=== PATIENT | male | born 1975 | race Caucasian/White ===

== ENCOUNTER 2017-05-13 15:01 | Observation (INO) | payer SELFPAY ==
--- NOTE | 2017-05-13 15:11 | PDOC ---
Rapid Medical Evaluation Time Seen by Provider: 05/13/17 15:08 Medical Evaluation: Allergies Allergy/AdvReac Type Severity Reaction Status Date / Time No Known Allergies Allergy Verified 04/30/16 21:28 05/13/17 15:08 I have performed a brief in-person evaluation of this patient. The patient presents with a chief complaint of: Lower abd pain with diarrhea w/ subjective fever and chills x 2 yesterday Pertinent physical exam findings:T 99.7 and tachy to 115 w/ lower abd ttp I have ordered the following:cbc/chem/lipase/ua/bld cx The patient will proceed to the ED for further evaluation.
[2017-05-13 15:36] LABS: BASO % 0.3 % (0-2.0); EOS % 0.3 % (0-4.5); MCH 31.2 pg (25.7-33.7); MCHC 34.3 g/dl (32.0-35.9); MEAN CELL VOLUME 90.9 fl (80-96); MEAN PLT VOLUME 9.3 fl (7.5-11.1); PLATELET COUNT 136 K/MM3 (134-434); RDW 13.3 % (11.9-15.9); WHITE BLOOD COUNT 11.8 K/mm3 (4.0-10.0)
[2017-05-13 15:37] LABS: URINE APPEARANCE CLOUDY; URINE BILIRUBIN NEGATIVE (NEGATIVE); URINE BLOOD 1+ (NEGATIVE); URINE COLOR YELLOW; URINE GLUCOSE (UA) NEGATIVE (NEGATIVE); URINE KETONE 1+ (NEGATIVE); URINE LEUK ESTERASE NEGATIVE (NEGATIVE); URINE NITRITE NEGATIVE (NEGATIVE); URINE PROTEIN NEGATIVE (NEGATIVE); URINE UROBILINOGEN NEGATIVE mg/dL (0.2-1.0)
[2017-05-13 15:46] LABS: URINE MUCUS RARE; URINE RBC 2 /hpf (0-3); URINE WBC 1 /hpf (3-5)
[2017-05-13 15:57] LABS: ANION GAP 11 (8-16); BILIRUBIN,TOTAL 0.7 mg/dL (0.2-1.0); CO2 26 mmol/L (21-32); CREATININE 0.9 mg/dL (0.7-1.3); GLUCOSE,RANDOM 100 mg/dL (74-106); SGOT/AST 21 U/L (15-37); SGPT/ALT 39 U/L (12-78); TOT PROT 8.3 g/dl (6.4-8.2)
[2017-05-13 15:58] LABS: ALK PHOS 97 U/L (45-117)
[2017-05-13 18:22] LABS: URINE LEUK ESTERASE Negative (NEGATIVE)
[2017-05-13] MEDS ORDERED: SODIUM CHLORIDE 0.9% 500 ML INFUS.BAG IV ONE (18:39)
[2017-05-13] MEDS ORDERED: ACETAMINOPHEN 1000 MG/100 ML VIAL (NON FORMULARY) IVPB ONE (18:46)
--- NOTE | 2017-05-13 18:48 | PDOC ---
History of Present Illness - General Chief Complaint: Back Pain Stated Complaint: BACK PAIN Time Seen by Provider: 05/13/17 15:08 - History of Present Illness Initial Comments: 05/13/17 20:59 The patient is a 42 year old male, with a significant past medical history of disc herniation, who presents to the emergency department complaining of abdominal pain since yesterday afternoon at approximately 14:00. Patient reports sudden onset of diffuse lower abdominal pain after eating a [employer] cheeseburger yesterday afternoon. Patient reports his pain has been intermittent and radiates into his lower back. Patient reports his pain is worse in his LLQ than his RLQ. Patient reports his pain is exacerbated with movement or when lying flat, and alleviated with walking. Patient describes his pain as fullness with ocassional electrical shocks, but reports associated diarrhea(x5 episodes, nonbloody), colic, subjective fever, chills, but denies any nausea, vomiting, or constipation. He denies any flank pain, dysuria, hematuria, frequency, or urgency. Denies any cough, lightheadedness, dizziness, headache or changes in vision. He denies any chest pain, shortness of breath, diaphoresis, or palpitations. He denies any recent trauma, heavy lifting, travel , or sick contacts. Allergies: NKDA Past Surgical History: None reported Social History: Occasional ETOH use. Non smoker. No recreational drug use. Past History - Past Medical History Allergies/Adverse Reactions: Allergies Allergy/AdvReac Type Severity Reaction Status Date / Time No Known Allergies Allergy Verified 05/13/17 15:11 Home Medications: Ambulatory Orders NK [No Known Home Medication] 07/16/15 COPD: No Other medical history: MOTHER DENIES MEDICAL HX - Immunization History Immunization Up to Date: Yes - Suicide/Smoking/Psychosocial Hx Smoking Status: No Smoking History: Never smoked Have you smoked in the past 12 months: No Number of Cigarettes Smoked Daily: 0 Hx Alcohol Use: Yes (OCCASIONALLY) Drug/Substance Use Hx: No Substance Use Type: None Review of Systems - Review of Systems Comments:: 05/13/17 20:59 GENERAL/CONSTITUTIONAL: Yes fever, chills, tremors. No weakness. HEAD, EYES, EARS, NOSE AND THROAT: No change in vision. No ear pain or discharge. No sore throat. GASTROINTESTINAL: Yes lower abdominal pain radiating to back, diarrhea, colic. No nausea, vomiting, or constipation. GENITOURINARY: No dysuria, frequency, or change in urination. CARDIOVASCULAR: No chest pain or shortness of breath. RESPIRATORY: No cough, wheezing, or hemoptysis. MUSCULOSKELETAL: Yes lower back pain. No joint or muscle swelling or pain. No neck pain. SKIN: No rash NEUROLOGIC: Yes headache. No vertigo, loss of consciousness, or change in strength/sensation. ENDOCRINE: No increased thirst. No abnormal weight change. HEMATOLOGIC/LYMPHATIC: No anemia, easy bleeding, or history of blood clots. ALLERGIC/IMMUNOLOGIC: No hives or skin allergy. *Physical Exam - Vital Signs Last Vital Signs Temp Pulse Resp BP Pulse Ox 99.7 F H 115 H 18 142/87 97 05/13/17 15:09 05/13/17 15:09 05/13/17 15:09 05/13/17 15:09 05/13/17 15:09 - Physical Exam Comments: 05/13/17 20:59 GENERAL: Awake, alert, and fully oriented, appears uncomfortable HEAD: No signs of trauma EYES: PERRLA, EOMI, sclera anicteric, conjunctiva clear ENT: Auricles normal inspection, hearing grossly normal, nares patent, oropharynx clear without exudates. Moist mucosa NECK: Normal ROM, supple, no lymphadenopathy, JVD, or masses LUNGS: Breath sounds equal, clear to auscultation bilaterally. No wheezes, and no crackles HEART: Regular rate and rhythm, normal S1 and S2, no murmurs, rubs or gallops ABDOMEN: Diffuse tenderness to palpation to the lower quadrants (left worse than right), but no guarding or rebound. Soft, normoactive bowel sounds. No masses EXTREMITIES: Normal range of motion, no edema. No clubbing or cyanosis. No cords, erythema, or tenderness BACK: No midline spinal tenderness in cervical/thoracic/lumbar region NEUROLOGICAL: Normal speech, cranial nerves intact, negative pronator drift, 5/ 5 strength in all 4 extremities, normal sensation to light touch in all 4 extremities, normal cerebellar exam, normal gait, normal reflexes and tone SKIN: Warm, Dry, normal turgor, no rashes or lesions noted. ED Treatment Course - LABORATORY CBC & Chemistry Diagram: 05/13/17 15:20 05/13/17 15:20 - ADDITIONAL ORDERS Additional order review: Laboratory Results 05/13/17 05/13/17 15:20 15:20 Sodium 137 Potassium 3.9 Chloride 100 Carbon Dioxide 26 Anion Gap 11 BUN 14 D Creatinine 0.9 D Creat Clearance w eGFR > 60 Random Glucose 100 Calcium 9.0 Total Bilirubin 0.7 D AST 21 ALT 39 D Alkaline Phosphatase 97 Total Protein 8.3 H Albumin 4.0 Lipase 96 Urine Color Yellow Urine Appearance Cloudy Urine pH 5.0 Ur Specific [place] 1.025 Urine Protein Negative Urine Glucose (UA) Negative Urine Ketones 1+ H Urine Blood 1+ H Urine Nitrite Negative Urine Bilirubin Negative Urine Urobilinogen Negative Ur Leukocyte Esterase Negative Urine WBC (Auto) 1 Urine RBC (Auto) 2 Urine Mucus Rare 05/13/17 15:20 RBC 4.92 MCV 90.9 MCHC 34.3 RDW 13.3 MPV 9.3 Neutrophils % 85.0 H D Lymphocytes % 8.0 D Monocytes % 6.4 Eosinophils % 0.3 D Basophils % 0.3 - RADIOLOGY Radiology Studies Ordered: Category Date Time Status ABDOMEN & PELVIS CT WITH CONTR [CT] Stat CT Scan 05/13/17 18:38 Ordered Medical Decision Making - Medical Decision Making 05/13/17 18:48 42-year-old male with a history of disc herniation presents with lower abdominal pain associated with nonbloody diarrhea. Vitals remarkable for tachycardia to 115. Exam with L>R lower quadrant tenderness to palpation. Differential includes but is not limited to diverticulitis versus colitis versus appendicitis. Plan: -labs -UA -CT -IV tylenol (for pain control, and for slightly elevated temp 99.7) -dispo *DC/Admit/Observation/Transfer Diagnosis at time of Disposition: Abdominal pain - Referrals - Patient Instructions - Post Discharge Activity - Attestations Physician Attestion: 05/13/17 21:00 I, Dr. Valencia Vaz MD, attest that this document has been prepared under my direction and personally reviewed by me in its entirety. I further attest, that it accurately reflects all work, treatment, procedures and medical decision -making performed by me.
[2017-05-13] MEDS ORDERED: ACETAMINOPHEN INJECTION 100 ML IVPB ONE (20:30)
[2017-05-13] MEDS ORDERED: LEVOFLOXACIN 250 MG TABLET (FP) PO ONE (23:14)
[2017-05-13] MEDS ORDERED: metroNIDAZOLE 250 MG TABLET PO ONE (23:14)
--- NOTE | 2017-05-13 23:20 | PDOC ---
*Physical Exam - Vital Signs Last Vital Signs Temp Pulse Resp BP Pulse Ox 99.7 F H 115 H 18 142/87 97 05/13/17 15:09 05/13/17 15:09 05/13/17 15:09 05/13/17 15:09 05/13/17 15:09 ED Treatment Course - LABORATORY CBC & Chemistry Diagram: 05/13/17 15:20 05/13/17 15:20 - ADDITIONAL ORDERS Additional order review: Laboratory Results 05/13/17 05/13/17 15:20 15:20 Sodium 137 Potassium 3.9 Chloride 100 Carbon Dioxide 26 Anion Gap 11 BUN 14 D Creatinine 0.9 D Creat Clearance w eGFR > 60 Random Glucose 100 Calcium 9.0 Total Bilirubin 0.7 D AST 21 ALT 39 D Alkaline Phosphatase 97 Total Protein 8.3 H Albumin 4.0 Lipase 96 Urine Color Yellow Urine Appearance Cloudy Urine pH 5.0 Ur Specific [place] 1.025 Urine Protein Negative Urine Glucose (UA) Negative Urine Ketones 1+ H Urine Blood 1+ H Urine Nitrite Negative Urine Bilirubin Negative Urine Urobilinogen Negative Ur Leukocyte Esterase Negative Urine WBC (Auto) 1 Urine RBC (Auto) 2 Urine Mucus Rare 05/13/17 15:20 RBC 4.92 MCV 90.9 MCHC 34.3 RDW 13.3 MPV 9.3 Neutrophils % 85.0 H D Lymphocytes % 8.0 D Monocytes % 6.4 Eosinophils % 0.3 D Basophils % 0.3 - Medications Given in the ED: ED Medications Discontinued Medications Generic Name Dose Route Start Last Admin Trade Name Brenden PRN Reason Stop Dose Admin Acetaminophen 1,000 mg 05/13/17 18:46 05/13/17 20:40 Ofirmev Injection - IVPB 05/13/17 18:47 1,000 mg ONCE ONE Administration Sodium Chloride 1,000 ml 05/13/17 18:39 05/13/17 20:39 Normal Saline - IV 05/13/17 18:40 1,000 ml ONCE ONE Administration Medical Decision Making - Medical Decision Making 05/13/17 23:16 Sign out taken from Dr. Vaz at 7PM. 42 M with LLQ pain. CTAP showing likely colitis. Pt reassessed - reports that his pain is tolerable, is able to tolerate PO without any issues. Levaquin and flagyl sent to pt's pharmacy. Will recheck vitals. DIscharge pending normalization of HR. 12/08/17 23:47 HR rechecked. Pt persistently tachycardic >100. Will admit to obs at this time for continued IV hydration and abx. *DC/Admit/Observation/Transfer Diagnosis at time of Disposition: Abdominal pain, Colitis - Prescriptions Prescriptions: Levofloxacin [Levaquin] 750 mg PO DAILY #7 tab Metronidazole [Flagyl -] 250 mg PO TID #21 tablet - Referrals Referrals: Rod Bates MD [Staff Physician] - - Patient Instructions Printed Discharge Instructions: DI for Colitis Additional Instructions: Take the antibiotics as prescribed to treat your colitis. If you experience worsening pain, fevers, vomiting, or any other concerning symptoms, return to the ER immediately. Otherwise follow up with a lumber carrier operator within 1-2 weeks for a re-evaluation. Call the number provided to make an appointment. Print Language: ICELANDIC - Post Discharge Activity - Attestations Physician Attestion: 05/13/17 23:22 I, Dr. Fransisco Hills MD, attest that this document has been prepared under my direction and personally reviewed by me in its entirety. I further attest, that it accurately reflects all work, treatment, procedures and medical decision -making performed by me.
[2017-05-13] MEDS ORDERED: metroNIDAZOLE 250 MG TABLET ONE (23:35)
[2017-05-13] MEDS ORDERED: LEVOFLOXACIN 500 MG TABLET (FP) ONE (23:35)
[2017-05-13] MEDS ORDERED: LEVOFLOXACIN 250 MG TABLET (FP) ONE (23:35)
[2017-05-13] MEDS ORDERED: SODIUM CHLORIDE 1,000 ML IV STA (23:44)
[2017-05-14] MEDS ORDERED: morphine SULFATE 4 MG/ML VIAL IVPUSH PRN (00:46)
[2017-05-14] MEDS ORDERED: METOCLOPRAMIDE HCL INJECTION 10 MG/2 ML VIAL IVPUSH PRN (00:46)
[2017-05-14] MEDS ORDERED: ACETAMINOPHEN 325 MG TABLET (FP) PO PRN (00:46)
--- NOTE | 2017-05-14 00:58 | HP ---
Admitting History and Physical - Primary Care Physician PCP: - Admission Chief Complaint: Abdominal pain and diarrhea History of Present Illness: 42 y/o M presented to ED c/o LUQ abdominal pain and 5-6 episodes of nonbloody diarrhea since . Patient states he ate a burger on and then had symptoms start. Denies fever, chills, nausea or vomiting. No prior use of antibiotics or travel or recent sick contacts. Patient came to the ER and was given IVF and cipro and flagyl. CT abdomen report colitis. History Source: Patient, Medical Record Limitations to Obtaining History: No Limitations - Past Medical History Musculoskeletal: Yes: Chronic low back pain (herniated disk) - Past Surgical History Past Surgical History: Yes: None - Smoking History Smoking history: Never smoked Have you smoked in the past 12 months: No Aproximately how many cigarettes per day: 0 - Alcohol/Substance Use Hx Alcohol Use: Yes (OCCASIONALLY) - Social History History of Recent Travel: No Home Medications - Allergies Allergies/Adverse Reactions: Allergies Allergy/AdvReac Type Severity Reaction Status Date / Time No Known Allergies Allergy Verified 05/13/17 15:11 - Home Medications Home Medications: Ambulatory Orders Levofloxacin [Levaquin] 750 mg PO DAILY #7 tab 05/13/17 Metronidazole [Flagyl -] 250 mg PO TID #21 tablet 05/13/17 Family Disease History - Family Disease History Family History: Unremarkable Review of Systems - Review of Systems Constitutional: reports: No Symptoms Eyes: reports: No Symptoms HENT: reports: No Symptoms Neck: reports: No Symptoms Cardiovascular: reports: No Symptoms Respiratory: reports: No Symptoms Gastrointestinal: reports: Abdominal Pain, Diarrhea. denies: Constipation, Dysphagia, Melena, Vomiting Blood Genitourinary: reports: No Symptoms Musculoskeletal: reports: Back Pain (History of back pain) Pain Intensity: 9 (cramping, sharp, intermittent) Physical Examination Vital Signs: Vital Signs Temperature 99.1 F 05/13/17 23:41 Pulse Rate 103 H 05/13/17 23:41 Respiratory Rate 20 05/13/17 23:41 Blood Pressure 134/75 05/13/17 23:41 O2 Sat by Pulse Oximetry (%) 100 05/13/17 23:41 Constitutional: Yes: Well Nourished, Severe Distress Eyes: Yes: Conjunctiva Clear, EOM Intact, PERRL HENT: Yes: Atraumatic, Normocephalic Neck: Yes: Supple, Trachea Midline Cardiovascular: Yes: Regular Rate and Rhythm, S1, S2. No: Gallop, Murmur, Rub Respiratory: Yes: Regular, CTA Bilaterally. No: SOB Gastrointestinal: Yes: Normal Bowel Sounds, Soft. No: Ascites, Hernia, Pulsatile Mass, Vomiting ...Rectal Exam: Yes: Deferred Renal/: Yes: WNL. No: CVA Tenderness - Left, CVA Tenderness - Right, Hematuria, Incontinence Musculoskeletal: Yes: WNL Extremities: Yes: WNL Edema: No Peripheral Pulses WNL: Yes Integumentary: Yes: WNL. No: Erythema, Jaundice, Rash Neurological: Yes: Alert, Oriented, Cran Nerves II-XII Intact ...Motor Strength: WNL Psychiatric: Yes: WNL Labs: CBC, BMP 05/13/17 15:20 05/13/17 15:20 Imaging - Results Cat Scan: Report Reviewed (Mild diffuse colonic wall thickening) Problem List - Problems (1) Colitis Assessment/Plan: Admit for observation IVF NS @200cc/h Clear liquids as tolerated Morphine 2 mg q6h prn for severe, tylenol 650mg po q6h prn Pepcid 20 mg BID Stool studies if patient has further bowel movements DVT prophylaxis SCD Repeat CBC and BMP in AM Code(s): K52.9 - NONINFECTIVE GASTROENTERITIS AND COLITIS, UNSPECIFIED (2) H/O low back pain Code(s): Z87.39 - PERSONAL HISTORY OF DISEASES OF THE MS SYS AND CONN TISS
[2017-05-14] MEDS ORDERED: ACETAMINOPHEN 325 MG TABLET (FP) ONE (01:05)
[2017-05-14] MEDS: SODIUM CHLORIDE 1,000 ML IV SCH ×4 (03:41→17:28)
[2017-05-14 04:40] VITALS: BMI 28.3
[2017-05-14 08:13] LABS: MCH 31.7 pg (25.7-33.7); MCHC 34.7 g/dl (32.0-35.9); MEAN CELL VOLUME 91.5 fl (80-96); MEAN PLT VOLUME 9.5 fl (7.5-11.1); PLATELET COUNT 119 K/MM3 (134-434); RDW 13.2 % (11.9-15.9); WHITE BLOOD COUNT 8.1 K/mm3 (4.0-10.0)
[2017-05-14 08:48] LABS: ANION GAP 9 (8-16); BILIRUBIN,TOTAL 0.7 mg/dL (0.2-1.0); CALCIUM 7.5 mg/dL (8.5-10.1); CO2 25 mmol/L (21-32); CREATININE 0.8 mg/dL (0.7-1.3); GLUCOSE,RANDOM 91 mg/dL (74-106); SGOT/AST 18 U/L (15-37); SGPT/ALT 31 U/L (12-78)
[2017-05-14 08:49] LABS: ALK PHOS 81 U/L (45-117)
[2017-05-14] MEDS ORDERED: PT OWN MED DRAWER 7, Y5N ONE (09:02)
[2017-05-14] MEDS ORDERED: FAMOTIDINE IV 20 MG/12 ML VIAL IVPUSH SCH ×2 (10:00)
--- NOTE | 2017-05-14 16:28 | PN ---
Physical Exam: SUBJECTIVE: Patient seen and examined OBJECTIVE: Vital Signs Period Temp Pulse Resp BP Sys/White Pulse Ox Last 24 Hr 97.9 F-99.9 F 87-107 16-20 109-136/56-78 96-100 GENERAL: The patient is awake, alert, and fully oriented, in no acute distress. HEAD: Normal with no signs of trauma. EYES: PERRL, extraocular movements intact, sclera anicteric, conjunctiva clear. No ptosis. ENT: Ears normal, nares patent, oropharynx clear without exudates, moist mucous membranes. NECK: Trachea midline, full range of motion, supple. LUNGS: Breath sounds equal, clear to auscultation bilaterally, no wheezes, no crackles, no accessory muscle use. HEART: Regular rate and rhythm, S1, S2 without murmur, rub or gallop. ABDOMEN: Soft, nontender, nondistended, normoactive bowel sounds, no guarding, no rebound, no hepatosplenomegaly, no masses. EXTREMITIES: 2+ pulses, warm, well-perfused, no edema. NEUROLOGICAL: Cranial nerves II through XII grossly intact. Normal speech, gait not observed. PSYCH: Normal mood, normal affect. SKIN: Warm, dry, normal turgor, no rashes or lesions noted Laboratory Results - last 24 hr 05/13/17 05/14/17 05/14/17 15:20 06:20 06:20 WBC 8.1 D RBC 4.39 Hgb 13.9 Hct 40.2 MCV 91.5 MCH 31.7 MCHC 34.7 RDW 13.2 Plt Count 119 L MPV 9.5 Sodium 141 Potassium 3.7 Chloride 107 Carbon Dioxide 25 Anion Gap 9 BUN 9 D Creatinine 0.8 Creat Clearance w eGFR > 60 Random Glucose 91 Calcium 7.5 L Total Bilirubin 0.7 AST 18 ALT 31 D Alkaline Phosphatase 81 Total Protein 7.0 Albumin 3.0 L D Ur Leukocyte Esterase Negative Active Medications Generic Name Dose Route Start Last Admin Trade Name Freq PRN Reason Stop Dose Admin Acetaminophen 650 mg 05/14/17 00:46 05/14/17 02:31 Tylenol - PO 650 mg Q6H PRN Administration FEVER OR PAIN Sodium Chloride 1,000 mls @ 125 mls/hr 05/14/17 16:19 Normal Saline - IV [facility] Metronidazole 500 mg in 100 mls @ 100 mls/hr 05/14/17 18:00 Flagyl 500mg Premixed Ivpb - IVPB Q8H-IV BIPIN Levofloxacin 750 mg in 150 mls @ 150 mls/hr 05/14/17 16:30 Levaquin 750 Mg Premixed Ivpb - IVPB DAILY BIPIN ASSESSMENT/PLAN: ECG stool studiesl NPO NS @ 125mL levaquin, metronidazole
[2017-05-14] MEDS: METRONIDAZOLE 500 MG PREMIXED 500 MG/100 ML MG IVPB SCH (17:30)
[2017-05-14] MEDS: LEVOFLOXACIN 750 MG IVPB 750 MG/150 ML BAG IVPB SCH (18:31)
[2017-05-15] MEDS: METRONIDAZOLE 500 MG PREMIXED 500 MG/100 ML MG IVPB SCH ×3 (01:37→17:17)
[2017-05-15] MEDS: SODIUM CHLORIDE 1,000 ML IV SCH (01:41)
[2017-05-15 07:06] LABS: BASO % 0.4 % (0-2.0); EOS % 2.1 % (0-4.5); MCH 31.5 pg (25.7-33.7); MCHC 34.9 g/dl (32.0-35.9); MEAN CELL VOLUME 90.1 fl (80-96); MEAN PLT VOLUME 9.3 fl (7.5-11.1); NEUT % 63.7 % (42.8-82.8); PLATELET COUNT 120 K/MM3 (134-434); RDW 13.2 % (11.9-15.9); WHITE BLOOD COUNT 8.1 K/mm3 (4.0-10.0)
[2017-05-15 07:16] LABS: ALBUMIN 2.8 g/dl (3.4-5.0); ALK PHOS 70 U/L (45-117); ANION GAP 9 (8-16); BILIRUBIN,TOTAL 0.5 mg/dL (0.2-1.0); CALCIUM 7.6 mg/dL (8.5-10.1); CO2 24 mmol/L (21-32); CREATININE 0.6 mg/dL (0.7-1.3); GLUCOSE,RANDOM 85 mg/dL (74-106); MAGNESIUM 2.1 mg/dL (1.8-2.4); PHOSPHOROUS 2.5 mg/dL (2.5-4.9); SGOT/AST 24 U/L (15-37); SGPT/ALT 33 U/L (12-78); TOT PROT 6.6 g/dl (6.4-8.2)
--- NOTE | 2017-05-15 08:39 | DS ---
Physical Exam: SUBJECTIVE: Patient seen and examined OBJECTIVE: Vital Signs Period Temp Pulse Resp BP Sys/White Pulse Ox Last 24 Hr 97.8 F-99.6 F 73-103 18-18 107-119/56-70 97-98 PHYSICAL EXAM GENERAL: The patient is awake, alert, and fully oriented, in no acute distress. HEAD: Normal with no signs of trauma. EYES: PERRL, extraocular movements intact, sclera anicteric, conjunctiva clear. ENT: Ears normal, nares patent, oropharynx clear without exudates, moist mucous membranes. NECK: Trachea midline, full range of motion, supple. LUNGS: Breath sounds equal, clear to auscultation bilaterally, no wheezes, no crackles, no accessory muscle use. HEART: Regular rate and rhythm, S1, S2 without murmur, rub or gallop. ABDOMEN: Soft, nontender, nondistended, normoactive bowel sounds, no guarding, no rebound, no hepatosplenomegaly, no masses. EXTREMITIES: 2+ pulses, warm, well-perfused, no edema. NEUROLOGICAL: Cranial nerves II through XII grossly intact. Normal speech, gait not observed. PSYCH: Normal mood, normal affect. SKIN: Warm, dry, normal turgor, no rashes or lesions noted. LABS Laboratory Results - last 24 hr 05/14/17 05/14/17 05/15/17 06:20 22:45 05:30 WBC 8.1 RBC 4.35 Hgb 13.7 Hct 39.2 MCV 90.1 MCH 31.5 MCHC 34.9 RDW 13.2 Plt Count 120 L MPV 9.3 Neutrophils % 63.7 D Lymphocytes % 20.8 D Monocytes % 13.0 H D Eosinophils % 2.1 D Basophils % 0.4 Sodium 141 Potassium 3.7 Chloride 107 Carbon Dioxide 25 Anion Gap 9 BUN 9 D Creatinine 0.8 Creat Clearance w eGFR > 60 Random Glucose 91 Calcium 7.5 L Phosphorus Magnesium Total Bilirubin 0.7 AST 18 ALT 31 D Alkaline Phosphatase 81 Total Protein 7.0 Albumin 3.0 L D Stool Occult Blood Negative 05/15/17 05:30 WBC RBC Hgb Hct MCV MCH MCHC RDW Plt Count MPV Neutrophils % Lymphocytes % Monocytes % Eosinophils % Basophils % Sodium 141 Potassium 3.3 L Chloride 108 H Carbon Dioxide 24 Anion Gap 9 BUN 6 L D Creatinine 0.6 L D Creat Clearance w eGFR > 60 Random Glucose 85 Calcium 7.6 L Phosphorus 2.5 Magnesium 2.1 Total Bilirubin 0.5 D AST 24 D ALT 33 Alkaline Phosphatase 70 Total Protein 6.6 Albumin 2.8 L Stool Occult Blood HOSPITAL COURSE: Date of Admission:05/13/17 Date of Discharge: 05/15/17 Discharge Summary Reason For Visit: COLITIS Current Active Problems Abdominal pain (Acute) Colitis (Acute) H/O low back pain (Acute) - Instructions Diet, Activity, Other Instructions: Take the antibiotics as prescribed to treat your colitis. If you experience worsening pain, fevers, vomiting, or any other concerning symptoms, return to the ER immediately. Otherwise follow up with a multimedia editor within 1-2 weeks for a re-evaluation. Call the number provided to make an appointment. Referrals: Rod Bates MD [Staff Physician] -
[2017-05-15] MEDS: LEVOFLOXACIN 750 MG IVPB 750 MG/150 ML BAG IVPB SCH (10:53)
[2017-05-15] MEDS ORDERED: POTASSIUM CHLORIDE TABS 20 MEQ TABLET.ER (FP) PO ONE (16:00)
[2017-05-15 17:34] VITALS: BP 105/56; PULSE 83; TEMP 98.4
--- NOTE | 2017-05-16 15:09 | EKG ---
Test Reason : Blood Pressure : / mmHG Vent. Rate : 086 BPM Atrial Rate : 086 BPM P-R Int : 136 ms QRS Dur : 098 ms QT Int : 356 ms P-R-T Axes : 053 064 037 degrees QTc Int : 426 ms NORMAL SINUS RHYTHM NORMAL ECG NO PREVIOUS ECGS AVAILABLE Confirmed by SANDEEP PAVON MD ([id number]) on 05/16/2017 3:09:13 PM Referred By: Confirmed By:SANDEEP PAVON MD
== END 2017-05-15 18:53 | disposition home or self-care (01) ==
LOC: JER 15:01 → JERBED 23:56 → UNDOADMOB 05-14 00:03 → J7W 05-14 02:12 → JERBED 05-14 02:12
PROVIDERS: ADMIT Internal Medicine; ATTEND Nurse Practitioner Acute Care
PROC: 3E0337Z Introduction of Electrolytic and Water Balance Substance into Peripheral Vein, Percutaneous Approach (ICD-10-PCS; principal; 2017-05-13)
PROC: 3E033NZ Introduction of Analgesics, Hypnotics, Sedatives into Peripheral Vein, Percutaneous Approach (ICD-10-PCS; 2017-05-13)
DX: K52.9 Noninfective gastroenteritis and colitis, unspecified (principal); Z87.39 Personal history of other diseases of the musculoskeletal system and connective tissue; M54.5 Low back pain
CPT/HCPCS: 36415; 71010-TC; 74177-TC; 80053; 81003; 81015; 82272; 83690; 83735; 84100; 85025; 85027; 87040; 87045; 87046; 87324; 87449; 93005; 93010; 99282-25; 99283-25; G0378